=== PATIENT | female | born 1990 | race Hispanic/Latino ===

== ENCOUNTER 2020-01-16 13:21 | Outpatient (CLI) | payer OTHER ==
--- NOTE | 2020-01-16 15:30 | ULT ---
COMPLETE OBSTETRICAL ULTRASOUND: 01/16/20 INDICATION: Evaluate survey. COMPARISON: None. FINDINGS: There is a single live intrauterine gestation in vertex presentation with the placenta anterior in lo cation without evidence of previa. The cervical length was 3.1 cm. The MAYELIN was 10.5 cm. The head, heart, stomach, kidneys, cord, insertion, bladder, visualized extremities and three v essel cord appear within normal limits. There is limited visualization of the spine and lips and nose . Biparietal diameter measures 4.66 cm giving an estimated gestational age of 20 weeks and 1 day. Head circumference measures 17.92 cm giving an estimated gestational age of 20 weeks and 3 days. Abdominal circumference measures 14.62 cm giving an estimated gestational age of 20 weeks and 0 days. Femur length measures 3.10 cm giving an estimated gestational age of 19 weeks and 5 days. The average gestational age by ultrasound is 20 weeks and one day with estimated due date of 06/03/20 . Estimated clinical dates was 20 weeks and 4 days with estimated due date of 05/31/20. Estimated weight is 316 grams +/- 46 grams (11 oz +/- 2 oz)(13th percentile). IMPRESSION: 1. Single live intrauterine gestation with size and dates as above. 2. There is limited visualization of the spine and lips and nose. Follow-up examination in one to two weeks is recommended for completion of the survey. POS: ZAHRAA
== END 2020-01-16 13:22 | disposition home or self-care (01) ==
LOC: BICULT 13:21
PROVIDERS: ATTEND Family Medicine
DX: Z34.82 Encounter for supervision of other normal pregnancy, second trimester (principal); Z3A.20 20 weeks gestation of pregnancy
CPT/HCPCS: 76805

== ENCOUNTER 2020-05-04 11:20 | Day surgery (SDC) | payer OTHER ==
[2020-05-04] MEDS ORDERED: hydrALAZINE 20 MG/ML VIAL SLOW IVP PRN (11:38)
[2020-05-04 11:56] VITALS: BP 127/60; TEMP 98.4; BMI 37.5
[2020-05-04 12:20] LABS: Amnisure Test No Membranes Rupture (No Rupture)
[2020-05-04 12:21] LABS: Amnisure Internal Control QC ACCEPTABLE (ACCEPTABLE)
== END 2020-05-04 13:27 | disposition home or self-care (01) ==
LOC: L&D/OP 11:20
PROVIDERS: ATTEND Family Medicine
DX: O99.891 Other specified diseases and conditions complicating pregnancy (principal); M54.5 Low back pain; N89.8 Other specified noninflammatory disorders of vagina; Z3A.00 Weeks of gestation of pregnancy not specified
CPT/HCPCS: 84112; 87480; 87510; 87660; 99284

== ENCOUNTER 2020-05-11 17:40 | Inpatient (IN) | payer OTHER ==
[~2020-05-11 17:40] MED LIST: Bupivacaine/Epinephrine 0.25% 30 ML VIAL ONE
[2020-05-11 18:54] LABS: Amnisure Test No Membranes Rupture (No Rupture)
[2020-05-11 18:55] LABS: Amnisure Internal Control QC ACCEPTABLE (ACCEPTABLE)
[2020-05-11 19:02] VITALS: BMI 37.5
[2020-05-11] MEDS ORDERED: Ondansetron PF 4 MG/2 ML Vial IVP PRN (20:27)
[2020-05-11] MEDS ORDERED: Butorphanol Tartrate 1 MG/ML VIAL SLOW IVP PRN (20:27)
[2020-05-11] MEDS ORDERED: hydrALAZINE 20 MG/ML VIAL SLOW IVP PRN (20:27)
--- NOTE | 2020-05-12 02:32 | HP ---
PRIMARY OB: Dr. Ribeiro. CHIEF COMPLAINT: Leakage of fluid. HISTORY OF PRESENT ILLNESS: The patient is a 29-year-old, G2, P1 female, with an intrauterine at 36 weeks and 5 days, presenting to Labor and Delivery with 2 episodes of leakage of fluid. She reports that she was getting ready to take a bath when she noticed some leaking on a pad, which she took a picture of and again had some leaking later on in the day and came for evaluation. The patient denies any bleeding, any change of discharge, any uterine contractions. The patient was here in Labor and Delivery about a week ago and was diagnosed with bacterial vaginosis. The patient denies fever, cough, headache, chest pain, shortness of breath, nausea, vomiting, diarrhea, constipation, hip problems, knee problems, muscle weakness, vaginal bleeding, change in discharge, urinary urgency or frequency. She did provide a picture of the pad that she was wearing, which shows the yellow liquidy staining on the anterior portion of the pads in proximity to the urethra. PAST MEDICAL HISTORY: Anemia. PAST SURGICAL HISTORY: Cholecystectomy. ALLERGIES: NO KNOWN DRUG ALLERGIES. MEDICATIONS: vitamins. SOCIAL HISTORY: Denies drug, alcohol, or tobacco use. OB LABS: Blood type is O positive. Antibody screen is negative. RPR is nonreactive in the first and third trimester. HIV is nonreactive in the first and third trimester. Hepatitis B surface antigen is negative. She is rubella immune. GC and chlamydia are negative. 1-hour GTT is 130. REVIEW OF SYSTEMS: Per HPI. PHYSICAL EXAMINATION: VITAL SIGNS: Blood pressure 129/64, heart rate of 82, respiratory rate of 18. GENERAL: She appears to be in no acute distress. She is alert, oriented, cooperative, and pleasant to interact with. HEAD: Normocephalic, atraumatic. LUNGS: Clear to auscultation bilaterally. HEART: Has regular rate and rhythm. ABDOMEN: Gravid, soft, nontender. EXTREMITIES: Nontender. Nonedematous. PELVIS: Vulva is without masses, lesions, or erythema. Vagina is moist. She has negative pooling on cough or Valsalva. She does have a mucousy discharge. CERVIX: Per nursing staff, cervix is 5 cm dilated, completely effaced, and -1 station. LABORATORY DATA: AmniSure test is negative. heart tracing shows the fetus with a baseline in the 130s with moderate long-term variability, positive 15 x 15 accelerations, no decelerations. The patient is vesta about every 5 to 6 minutes, but not really felt by the patient. ASSESSMENT AND PLAN: The patient is a 29-year-old, G2, P1 female, with an intrauterine at 36 weeks and 5 days, presenting for leakage of fluid. She has no evidence of rupture of membranes; however, given her advanced cervical dilation, we have placed the patient in observation. I have spoken with her provider, who reports her GBS has been completed and is sending us the results. Fetus has a category 1 tracing and reactive NST. Her primary provider has been updated and will be assuming care. Once her GBS results are available, we will treat accordingly. Job ID: [id number]
[2020-05-12 02:45] LABS: Hemoglobin 12.3 g/dL (12.0-16.0); Mean Corpuscular HGB CONC 34.8 g/dL (32.0-36.0); Mean Corpuscular Hemoglobin 30.7 pg (27.0-31.0); Mean Corpuscular Volume 88.2 fL (78.0-98.0); Mean Platelet Volume 10.9 fL (7.4-10.4); Platelet Count 146 thou/uL (130-400); RBC Distribution Width 12.7 % (11.5-14.5); Red Blood Cell (RBC) Count 4.02 mill/uL (4.20-5.40); White Blood Cell (WBC) Count 13.5 thou/uL (4.8-10.8)
[2020-05-12 03:24] LABS: Hep B Surf Ag Non-Reactive S/CO (NonReactive)
[2020-05-12 06:46] LABS: Syphilis Antibody Nonreactive (Nonreactive); Syphilis Antibody Index 0.03 S/CO (<1.00 Non-Reactive)
[2020-05-12] MEDS ORDERED: Carboprost 250 MCG/ML AMP IM PRN (07:41)
[2020-05-12] MEDS ORDERED: hydrALAZINE 20 MG/ML VIAL SLOW IVP PRN (07:41)
[2020-05-12] MEDS ORDERED: Ondansetron PF 4 MG/2 ML Vial IVP PRN ×2 (07:41→13:45)
[2020-05-12] MEDS ORDERED: Promethazine HCl 25 MG/ML VIAL IM PRN ×2 (07:41→13:45)
[2020-05-12] MEDS ORDERED: Lidocaine 1% (PF) 30 ML VIAL SC PRN (07:41)
[2020-05-12] MEDS ORDERED: Ibuprofen 800 MG TAB PO PRN (07:41)
[2020-05-12] MEDS ORDERED: HYDROcodone/Acetaminophen 5/325 mg Tablet PO PRN (07:41)
[2020-05-12] MEDS ORDERED: Diphenoxylate HCl/Atropine Tablet PO PRN (07:41)
[2020-05-12] MEDS ORDERED: Methylergonovine 0.2 MG/ML VIAL IM PRN (07:41)
[2020-05-12] MEDS ORDERED: Misoprostol 200 MCG TAB PR PRN (07:41)
[2020-05-12] MEDS ORDERED: NS w/ Oxytocin 10 units 500 ML IV SCH ×2 (07:45)
[2020-05-12] MEDS: Lactated Ringer's 1,000 ML IV SCH ×3 (08:15→17:19)
[2020-05-12 09:24] LABS: Hemoglobin 12.2 g/dL (12.0-16.0); Mean Corpuscular HGB CONC 32.9 g/dL (32.0-36.0); Mean Corpuscular Volume 87.9 fL (78.0-98.0); Mean Platelet Volume 11.1 fL (7.4-10.4); Platelet Count 169 thou/uL (130-400); RBC Distribution Width 12.7 % (11.5-14.5); White Blood Cell (WBC) Count 12.7 thou/uL (4.8-10.8)
[2020-05-12 10:17] LABS: HBSAg Index 0.19 S/CO (0-0.99); Hep B Surf Ag Non-Reactive S/CO (NonReactive); Syphilis Antibody Nonreactive (Nonreactive); Syphilis Antibody Index 0.03 S/CO (<1.00 Non-Reactive)
[2020-05-12 11:25] LABS: SARS-CoV-2 MS2 Positive; SARS-CoV-2 N Gene Negative; SARS-CoV-2 S Gene Negative; SARS-CoV-2 by NAA Not Detected (NotDetected); SARS-CoV-2 orf1ab Negative
[2020-05-12] MEDS ORDERED: Fentanyl 4 mcg/Bup 0.1% Cadd 100 ML in Premix Bag 1 BAG EPIDURAL SCH (13:45)
[2020-05-12] MEDS ORDERED: diphenhydrAMINE 50 MG/ML VIAL IVP PRN (13:45)
[2020-05-12] MEDS ORDERED: Lactated Ringer's 500 ML IV PRN (13:45)
[2020-05-12] MEDS ORDERED: ePHEDrine/0.9% NaCl/PF SYRINGE 50 mg/10 ml IV PRN (13:45)
[2020-05-12] MEDS ORDERED: Naloxone HCl 0.4 mg/ml Vial IV PRN ×2 (13:45)
[2020-05-12] MEDS ORDERED: Acetaminophen 325 MG TAB PO PRN (13:45)
[2020-05-12] MEDS ORDERED: Hydrocerin (Eucerin) Cream 120 gm Jar TOP PRN (13:45)
[2020-05-12] MEDS: NS / Oxytocin 40 units/1000ml 1,000 ML IV PRN ×2 (20:35→22:38)
[2020-05-13] MEDS ORDERED: Benzocaine-Menthol 82.5 ML CAN TOP PRN (00:05)
[2020-05-13] MEDS ORDERED: Ondansetron PF 4 MG/2 ML Vial IVP PRN (00:05)
[2020-05-13] MEDS ORDERED: diphenhydrAMINE 25 MG CAP PO PRN (00:05)
[2020-05-13] MEDS ORDERED: Milk Of Magnesia 30 ML UDCUP PO PRN (00:05)
[2020-05-13] MEDS ORDERED: Bisacodyl 10 MG SUPP PR PRN (00:05)
[2020-05-13] MEDS ORDERED: hydrALAZINE 20 MG/ML VIAL SLOW IVP SCH (00:05)
[2020-05-13] MEDS ORDERED: NS / Oxytocin 40 units/1000ml 1,000 ML IV SCH (00:05)
[2020-05-13] MEDS ORDERED: HYDROcodone/Acetaminophen 5/325 mg Tablet PO PRN ×2 (00:05)
[2020-05-13] MEDS ORDERED: Lanolin Ointment 7 GM TUBE TOP PRN (00:05)
[2020-05-13] MEDS ORDERED: Promethazine HCl 25 MG/ML VIAL IM PRN (00:05)
[2020-05-13] MEDS: Ibuprofen 800 MG TAB PO SCH ×3 (01:34→16:07)
[2020-05-13] MEDS: Lactated Ringer's 1,000 ML IV SCH (02:11)
[2020-05-13 06:38] LABS: #Eosinphils 0.1 thou/uL (0.0-0.7); #Lymphocytes 3.2 thou/uL (1.20-3.40); #Monocytes 0.9 thou/uL (0.11-0.59); #Neutrophils 12.3 thou/uL (1.40-6.50); %Basophils 0.2 % (0.0-1.0); %Eosinophils 0.4 % (0.0-10.0); %Lymphocytes 19.3 % (21.0-51.0); %Monocytes 5.6 % (0.0-10.0); %Neutrophils 74.5 % (42.0-75.0); Mean Corpuscular HGB CONC 34.1 g/dL (32.0-36.0); Mean Corpuscular Hemoglobin 30.1 pg (27.0-31.0); Mean Corpuscular Volume 88.3 fL (78.0-98.0); Mean Platelet Volume 10.9 fL (7.4-10.4); Platelet Count 150 thou/uL (130-400); RBC Distribution Width 12.5 % (11.5-14.5); Red Blood Cell (RBC) Count 3.65 mill/uL (4.20-5.40); White Blood Cell (WBC) Count 16.5 thou/uL (4.8-10.8)
[2020-05-13] MEDS: Ferrous Sulfate 325 MG TAB PO SCH ×2 (06:55→06:56)
[2020-05-13] MEDS: Prenatal Vitamin 1 TAB PO SCH (07:54)
[2020-05-13] MEDS: Docusate Calcium (SURFAK) 240 MG CAP PO SCH (07:54)
[2020-05-13] MEDS ORDERED: Adacel (T-DAP) 0.5 ML SYRINGE IM ONE (09:00)
[2020-05-14] MEDS: Docusate Calcium (SURFAK) 240 MG CAP PO SCH ×2 (00:07→08:23)
[2020-05-14] MEDS: Ibuprofen 800 MG TAB PO SCH ×3 (00:09→17:03)
[2020-05-14 08:18] VITALS: BP 104/52; TEMP 98.1
[2020-05-14] MEDS: Ferrous Sulfate 325 MG TAB PO SCH ×2 (08:19→16:59)
[2020-05-14] MEDS: Prenatal Vitamin 1 TAB PO SCH (08:22)
== END 2020-05-14 18:45 | disposition home or self-care (01) | DRG 807 ==
LOC: L&D/OP 17:40 → L&D 05-12 01:34 → 3SE 05-13 00:06 → 3SW 05-13 16:44
PROVIDERS: ADMIT Family Medicine; ATTEND Family Medicine
PROC: 10E0XZZ Delivery of Products of Conception, External Approach (ICD-10-PCS; principal; 2020-05-12)
PROC: 0HQ9XZZ Repair Perineum Skin, External Approach (ICD-10-PCS; 2020-05-12)
PROC: 10907ZC Drainage of Amniotic Fluid, Therapeutic from Products of Conception, Via Natural or Artificial Opening (ICD-10-PCS; 2020-05-12)
DX: O60.14X0 Preterm labor third trimester with preterm delivery third trimester, not applicable or unspecified (principal); Z37.0 Single live birth; Z20.828 Contact with and (suspected) exposure to other viral communicable diseases; Z3A.36 36 weeks gestation of pregnancy; Z90.49 Acquired absence of other specified parts of digestive tract; O70.0 First degree perineal laceration during delivery
CPT/HCPCS: 36415; 51702; 84112; 85025; 85027; 86780; 86850; 86900; 86901; 87340; 87635; 99285; J2590; U0003

== ENCOUNTER 2021-06-15 21:23 | Emergency (ER) | payer OTHER | END 2021-06-15 21:56 | disposition home or self-care (01) | LOC: ERS 21:23 | DX: Z20.822 Contact with and (suspected) exposure to COVID-19 (principal) | CPT/HCPCS: 99283 ==

== ENCOUNTER 2023-11-15 18:27 | Emergency (ER) | payer OTHER ==
[2023-11-15 20:56] LABS: Influenza A by NAA Not Detected (NotDetected); Influenza B by NAA Not Detected (NotDetected); SARS-CoV-2 NAA Rapid Test Not Detected (NotDetected)
== END 2023-11-15 20:40 | disposition home or self-care (01) ==
LOC: ERS 18:27
DX: J18.1 Lobar pneumonia, unspecified organism (principal)
CPT/HCPCS: 71046

== ENCOUNTER 2023-11-28 11:44 | Emergency (ER) | payer SELFPAY ==
[2023-11-28 12:25] LABS: Hematocrit 42.7 % (36.0-47.0); Hemoglobin 14.6 g/dL (12.0-16.0); Mean Corpuscular HGB CONC 34.2 g/dL (32.0-36.0); Mean Corpuscular Hemoglobin 29.9 pg (27.0-31.0); Mean Corpuscular Volume 87.3 fL (78.0-98.0); Mean Platelet Volume 12.7 fL (7.4-10.4); Platelet Count 212 10x3/uL (130-400); RBC Distribution Width 13.1 % (11.5-14.5); Red Blood Cell (RBC) Count 4.89 mill/uL (4.20-5.40)
[2023-11-28 12:40] LABS: ALT (SGPT) 26 U/L (8-55); AST (SGOT) 19 U/L (5-34); Alkaline Phosphatase 104 U/L (40-110); Anion Gap 10 mmol/L (10-20); BUN (Urea Nitrogen) 7 mg/dL (7.0-18.7); Bilirubin, Total 2.2 mg/dL (0.2-1.2); Calc. Creatinine Clearance 0 mL/min (70-130); Calcium 9.4 mg/dL (7.8-10.44); Carbon Dioxide 29 mmol/L (22-29); Chloride 101 mmol/L (98-107); Estimated GFR 120; Glucose 106 mg/dL (70-105); Potassium 3.2 mmol/L (3.5-5.1); Sodium 137 mmol/L (136-145)
[2023-11-28 12:45] LABS: Lymphocytes 12 % (21-51); Neutrophil 88 % (42-75); Platelet Adequacy Comment Platelets Normal; Polychromasia SLIGHT = 2-3 cells HPF (0-2); Vacuoles SLIGHT
[2023-11-28] MEDS ORDERED: Lidocaine 1% MPF 2 ML VIAL ONE (13:41)
[2023-11-28] MEDS ORDERED: CEFAZOLIN 1 GM VIAL ONE (13:41)
[2023-11-28] MEDS ORDERED: cefTRIAXone (ROCEPHIN) 1 GM VIAL ONE (13:42)
[2023-11-28] MEDS ORDERED: Ibuprofen 200 MG TAB ONE (13:53)
== END 2023-11-28 13:45 | disposition home or self-care (01) ==
LOC: ERS 11:44
DX: J18.1 Lobar pneumonia, unspecified organism (principal)
CPT/HCPCS: 36415; 71046; 80053; 83605; 85025; 96372; J0690; J0696